=== PATIENT | female | born 1995 | race Caucasian/White ===

== ENCOUNTER 2020-12-05 20:05 | Emergency (ER) | payer OTHER ==
[~2020-12-05] VITALS: Ht 170.2 cm; Wt 65.8 kg
--- NOTE | ~2020-12-05 | EMS ---
[facility] [address] [place] [address] EMS Patient Care Report Name: MAO RODRIGUEZ Room: [facility]#: [id number] Admission: 12/05/20 Attend Phys: Discharge: 12/06/20 Date of : [birth year] Report #: [id number] THIS REPORT FOR: //name// Report Transmitted: 12/07/2020 10:08 EMS Care Summary [facility] [employer] [facility] Incident [phone] @ 12/05/2020 19:24 Incident Location [facility] [address] [place] [id number] Patient MAO RODRIGUEZ Female, 25 Years 1995 Patient Address [address] [place] [address] Patient History None Reported, Patient Allergies No known allergies, Patient Medications None Reported, Chief Complaint Syncope Disposition Transported No Lights/Jamul Dispatch Reason Sick Person Transported To [facility] Narrative 25 y/o female pt found sitting in stopped vehicle upon EMS arrival. EMS was called by Samantha DODSON for a patient that had pulled over on the side of the road and appeared to be in and out of consciousness and was vomiting. When we arrived, pt was alert and oriented smoking a cigarette. Pt was alert and [facility] [address] [place] [address] EMS Patient Care Report Name: MAO RODRIGUEZ Room: [facility]#: [id number] Admission: 12/05/20 Attend Phys: Discharge: 12/06/20 Date of : [birth year] Report #: [id number] talking, but appeared to be slow to respond and seemed lethargic. She was assisted from vehicle and moved to the back of the ambulance. Once in ambulance, initial vitals were assessed and she was placed on cardiac cath rn. A 12-lead EKG was done revealing NSR. Before transport, a 20G IV was established in the patient's LAC and she was given 4mg of Ondansetron for nausea/vomiting. During transport, pt admits to using Fentanyl this morning and states that she believes that she may be experiencing withdraw. Pt states that she last used this morning and that she uses by snorting it. Normal Saline was administered as a fluid bolus wide open and she was given approximately 500mL throughout transport. Pt was maintaining her own airway well and had clear, equal, and bilateral breath sounds in all cabrera. Pt remained alert but lethargic throughout transport. She was continuously monitored and reassessed with no further complaints or changes in condition. Care was transferred to RN at [facility]. Initial Vitals @19:48P: 74,R: 14,BP: 129/79,Pain: 4/10,GCS: 15,SpO2: 100,Revised Trauma: 12, @19:37P: 87,R: 14,BP: 132/85,Pain: 4/10,GCS: 15,Glucose: 113,SpO2: 100,Revised Trauma: 12,[place] Suspected: false @19:54P: 74,R: 12,BP: 105/78,Pain: 4/10,GCS: 15,SpO2: 98,Revised Trauma: 12, Assessments @19:46MENTAL:Person Oriented,Time Oriented,Event Oriented,Place Oriented,SKIN:Diaphoresis,HEENT:Head/Face: No Abnormalities,Neck/Airway: No Abnormalities,LUNG SOUNDS:General: No Abnormalities,Left Upper: No Abnormalities,Right Upper: No Abnormalities,Left Lower: No Abnormalities,Right Lower: No Abnormalities,ABDOMEN:General: No Abnormalities,Left Upper: No Abnormalities,Right Upper: No Abnormalities,Left Lower: No Abnormalities,Right Lower: No Abnormalities,PELVIS//GI:No Abnormalities,EXTREMITIES:Left Arm: No Abnormalities,Right Arm: No Abnormalities,Left Leg: No Abnormalities,Right Leg: No Abnormalities,PULSE:NEURO:No Abnormalities, Impression Vomiting Procedures @19:38Normal Saline (.9% NaCl) 10cc (20 ga) Site: Antecubital-LeftResponse: UnchangedSucceeded@19:40Ondansetron - 4 Milligrams (mg) - Intravenous (IV)Response: Unchanged@19:44Normal Saline (.9% NaCl) 500cc () Site: Antecubital-LeftResponse: UnchangedSucceeded Timeline 19:24,Call Received 19:24,Dispatched 19:26,En Route 19:28,[place] [id number] EMS Patient Care Report Name: MAO RODRIGUEZ Room: [facility]#: [id number] Admission: 12/05/20 Attend Phys: Discharge: 12/06/20 Date of : [birth year] Report #: [id number] 19:28,On Scene 19:29,At Patient 19:37,BP: 132/85 M,PULSE: 87,RR: 14 R,SPO2: 100 Ox,ETCO2: ,B,PAIN: 4,GCS: 15, 19:38,Depart Scene 19:38,Normal Saline (.9% NaCl) 10cc 20 ga Site: Antecubital-Left,Response: UnchangedSucceeded, 19:40,Ondansetron - 4 Milligrams (mg) - Intravenous (IV),Response: Unchanged 19:44,Normal Saline (.9% NaCl) 500cc Site: Antecubital-Left,Response: UnchangedSucceeded, 19:48,BP: 129/79 M,PULSE: 74,RR: 14 R,SPO2: 100 Ox,ETCO2: ,BG: ,PAIN: 4,GCS: 15, 19:54,BP: 105/78 M,PULSE: 74,RR: 12 R,SPO2: 98 Ox,ETCO2: ,BG: ,PAIN: 4,GCS: 15, 19:56,At Destination 19:58,Transfer Patient 20:29,Call Closed 20:29,In District Disclaimer v1.1 Copyright 2020 [employer] This EMS Care Summary contains data elements from the applicable legal record (which may be displayed differently). It is designed to provide pertinent information for the following purposes: continuity of care, clinical quality, and state data reporting. The complete legal record is available to ED staff and administrators of the receiving hospital in [employer]'s Patient Tracker. All data is provided "as is."
[2020-12-05] MEDS ORDERED: PERCOCET 5-3251 EACH PO (20:18)
[2020-12-05 20:36] LABS: URINE BILIRUBIN NEGATIVE (Negative); URINE BLOOD TRACE (Negative); URINE CLARITY CLEAR; URINE COLOR YELLOW; URINE GLUCOSE-RANDOM NEGATIVE (Negative); URINE KETONES NEGATIVE (Negative); URINE LEUKOCYTES-REFLEX NEGATIVE (Negative); URINE NITRITE-REFLEX NEGATIVE (Negative); URINE PROTEIN NEGATIVE (Negative); URINE SPECIFIC GRAVITY >= 1.030 (1.005-1.030); URINE UROBILINOGEN 0.2 E.U./dl (0.2-1.0)
[2020-12-05 20:44] LABS: AMP/METHAMP Negative (Negative); BARBITURATES Negative (Negative); BENZODIAZEPINES Negative (Negative); COCAINE Negative (Negative); METHADONE Negative (Negative); OPIATES POSITIVE (Negative); PCP Negative (Negative); THC POSITIVE (Negative)
[2020-12-05 20:56] LABS: ABSOLUTE BASOPHILS 0.1 thou/uL (0.0-0.2); ABSOLUTE EOSINOPHILS 0.2 thou/uL (0.0-0.7); ABSOLUTE LYMPHOCYTES 1.4 thou/uL (0.8-5.3); ABSOLUTE MONOCYTES 0.7 thou/uL (0.0-1.2); ABSOLUTE NEUTROPHILS 9.1 thou/uL (1.6-8.1); BASOPHILS 0.5 %; EOSINOPHILS 1.3 %; HEMATOCRIT 38.9 % (37.0-47.0); HEMOGLOBIN 13.2 gm/dL (12.0-15.0); MCH 31.7 pg (26.0-34.0); MCV 93.2 fL (80.0-100.0); MONOCYTES 6.3 %; NUCLEATED RBCS 0 /100WBC; PLATELET COUNT* 259 thou/uL (150-400); POLYS 79.9 %; RBC 4.17 mil/uL (4.20-5.00); RDW-CV 12.7 % (10.5-14.5); WBC 11.4 thou/uL (4.0-11.0)
[2020-12-05 21:06] LABS: CALCIUM 8.8 mg/dL (8.5-10.1); CREATININE 0.6 mg/dL (0.6-1.3); POTASSIUM 3.3 mmol/L (3.5-5.1)
[2020-12-05 21:10] LABS: ALBUMIN 4.1 g/dL (3.4-5.0); TOTAL BILIRUBIN 0.2 mg/dL (<0.1-1.0); TOTAL PROTEIN 7.4 g/dL (6.4-8.2)
[2020-12-06 06:01] VITALS: BP 121/64
== END 2020-12-06 06:03 | disposition home or self-care (01) ==
LOC: M.ERS 20:05
PROVIDERS: Personal Emergency Response Attendant
DX: T40.2X1A Poisoning by other opioids, accidental (unintentional), initial encounter (principal); F11.10 Opioid abuse, uncomplicated; F17.210 Nicotine dependence, cigarettes, uncomplicated; Y92.89 Other specified places as the place of occurrence of the external cause